=== PATIENT | male | born 1950 | race Caucasian/White ===

== ENCOUNTER 2024-11-04 10:20 | Emergency (ER) | payer MEDICARE, OTHER ==
[2024-11-04] MEDS ORDERED: Acetaminophen 500 MG TAB ONE (10:43)
== END 2024-11-04 12:45 | disposition short-term general hospital (02) ==
LOC: BURERS 10:20
DX: M79.89 Other specified soft tissue disorders (principal); R79.1 Abnormal coagulation profile; I10 Essential (primary) hypertension; Z87.891 Personal history of nicotine dependence; Z79.899 Other long term (current) drug therapy
CPT/HCPCS: 85379; 99284